=== PATIENT | male | born 1995 | race Two or more races ===

== ENCOUNTER 2021-03-07 23:28 | Emergency (ER) | payer OTHER ==
[~2021-03-07] VITALS: Ht 170.2 cm; Wt 47.2 kg
[2021-03-08] MEDS ORDERED: DICLOFENAC SODI75 MG PO (00:27)
== END 2021-03-08 02:13 | disposition home or self-care (01) ==
LOC: ER 23:28
DX: S92.412A Displaced fracture of proximal phalanx of left great toe, initial encounter for closed fracture (principal); X58.XXXA Exposure to other specified factors, initial encounter; Y93.89 Activity, other specified; Y92.89 Other specified places as the place of occurrence of the external cause

== ENCOUNTER 2021-09-15 14:01 | Outpatient (CLI) | payer OTHER ==
[~2021-09-15 14:01] MED LIST: DICLOFENAC SODI75 MG PO
== END 2021-09-15 14:12 | disposition home or self-care (01) ==
LOC: SONOGRAMA 14:01
PROVIDERS: ATTEND General Practice
DX: N20.0 Calculus of kidney (principal)

== ENCOUNTER 2022-01-09 12:39 | Outpatient (CLI) | payer OTHER | END 2022-01-09 14:38 | disposition home or self-care (01) | LOC: RAD 12:39 | DX: M99.01 Segmental and somatic dysfunction of cervical region (principal); M99.02 Segmental and somatic dysfunction of thoracic region; M99.03 Segmental and somatic dysfunction of lumbar region; M99.04 Segmental and somatic dysfunction of sacral region; M99.05 Segmental and somatic dysfunction of pelvic region ==

== ENCOUNTER 2023-07-02 10:13 | Emergency (ER) | payer OTHER ==
[~2023-07-02] VITALS: Ht 172.7 cm; Wt 51.7 kg
[2023-07-02] MEDS ORDERED: MONTELUKAST SODI4 M1 PO (10:22)
[2023-07-02] MEDS ORDERED: LEXAPRO20 MG PO (10:22)
[2023-07-02] MEDS ORDERED: 0.9 % SODIUM CHLORIDE 500 ML IV SCH (12:00)
[2023-07-02] MEDS ORDERED: ONDANSETRON HCL 2 MG/ML VIAL IV ONE (12:00)
[2023-07-02 13:01] LABS: HEMATOCRIT 42.6 % (36.0-45.00); HEMOGLOBIN 14.1 g/dL (12.0-15.00); MEAN CELL VOLUME 83.6 fL (80.00-100.00); MEAN CORPUSCULAR HEMOGLOBIN 27.7 pg (27.00-32.0); MEAN CORPUSCULAR HGB CONC 33.1 g/dl (32.0-36.0); PLATELET COUNT 250 K/uL (150-450); RED BLOOD COUNT 5.09 M/uL (4.00-6.00); RED CELL DISTRIBUTION WIDTH 12.9 % (11.5-14.5)
[2023-07-02 13:34] LABS: URINE APPEARANCE Clear; URINE BILIRRUBIN Negative (NEGATIVE); URINE BLOOD Negative; URINE COLOR Yellow; URINE GLUCOSE Negative (NEGATIVE); URINE LEUKOCYTE Negative; URINE NITRATE Negative; URINE PROTEIN Negative (NEGATIVE); URINE UROBILINOGEN 0.2 E.U./dl
[2023-07-02 13:38] LABS: URINE BACTERIA 289.6 uL (0.0-1933); URINE EPITHELIAL CELLS 6.1 uL (0.0-38.8); URINE RBC 4.3 uL (0.0-20.8); URINE WBC 11.5 uL (0.0-23.2)
[2023-07-02 14:10] LABS: CALCIUM 10.1 mg/dL (8.5-10.1); CREATININE SERUM 0.63 mg/dL (0.55-1.02); GFR 113.35; POTASSIUM 3.94 mEq/L (3.5-5.1)
== END 2023-07-02 16:42 | disposition home or self-care (01) ==
LOC: ER 10:14
PROVIDERS: Emergency Medicine
DX: K29.70 Gastritis, unspecified, without bleeding (principal); R11.10 Vomiting, unspecified

== ENCOUNTER 2023-12-20 14:23 | Emergency (ER) | payer OTHER ==
[~2023-12-20] VITALS: Ht 172.7 cm; Wt 46.7 kg
[~2023-12-20 14:23] MED LIST changes: +LEXAPRO20 MG PO; +MONTELUKAST SODI4 M1 PO
[2023-12-20] MEDS ORDERED: 0.9 % SODIUM CHLORIDE 1,000 ML IV ONE (16:30)
[2023-12-20] MEDS ORDERED: FAMOtidine 10 MG/ML (4ML VIAL) IV ONE (16:30)
[2023-12-20] MEDS ORDERED: ONDANSETRON HCL 2 MG/ML VIAL IV ONE (16:30)
[2023-12-20 16:59] LABS: HEMATOCRIT 37.6 % (36.0-45.00); HEMOGLOBIN 12.4 g/dL (12.0-15.00); MEAN CELL VOLUME 83.5 fL (80.00-100.00); MEAN CORPUSCULAR HEMOGLOBIN 27.7 pg (27.00-32.0); MEAN CORPUSCULAR HGB CONC 33.1 g/dl (32.0-36.0); PLATELET COUNT 202 K/uL (150-450)
[2023-12-20 17:40] LABS: ALBUMIN 4.5 gm/dL (3.4-5.0); ALKALINE PHOSPHATASE 47 U/L (50-136); ALT/SGPT 24 U/L (12-78); AMYLASE 87 U/L (25-115); ANION GAP 12 (10.0-20.0); AST/SGOT 15 U/L (15-37); BILIRUBIN TOTAL 0.33 mg/dL (0.3-1.2); BLOOD UREA NITROGEN 18 mg/dL (7-18); BUN CREA RATIO 31 (7.0-25.0); CALCIUM 9.7 mg/dL (8.5-10.1); CARBON DIOXIDE 27 mEq/L (21-32); CHLORIDE 106 mmol/L (98-107); CREATININE SERUM 0.59 mg/dL (0.55-1.02); GFR 122.27; GLOBULINA 3.8 G/DL (2.4-3.5); GLUCOSE FASTING 94 mg/dL (65-100); LIPASE 61 U/L (13-75); OSMOLALITY SERUM 283 MOSM/KG (275-295); POTASSIUM 3.93 mEq/L (3.5-5.1); SODIUM 141 mmol/L (136-145); TOTAL PROTEIN 8.3 gm/dL (6.4-8.2)
[2023-12-20 17:41] LABS: HCG QUANTITATIVE < 1 mUI/mL (1-3)
[2023-12-20 17:45] LABS: URINE APPEARANCE Clear; URINE BILIRRUBIN Negative (NEGATIVE); URINE BLOOD Negative; URINE COLOR Yellow; URINE GLUCOSE Negative (NEGATIVE); URINE LEUKOCYTE Negative; URINE NITRATE Negative; URINE PROTEIN Negative (NEGATIVE); URINE UROBILINOGEN 0.2 E.U./dl
[2023-12-20 17:48] LABS: URINE BACTERIA 206.5 uL (0.0-1933); URINE RBC 8.5 uL (0.0-20.8); URINE WBC 5.8 uL (0.0-23.2)
[2023-12-20 18:08] LABS: URINE CAST 0.15 uL (0.0-1.40); URINE KETONE 40 (NEGATIVE)
== END 2023-12-20 19:33 | disposition home or self-care (01) ==
LOC: ER 14:23
PROVIDERS: General Practice
DX: R19.7 Diarrhea, unspecified (principal); Z87.09 Personal history of other diseases of the respiratory system

== ENCOUNTER 2024-02-26 18:28 | Emergency (ER) | payer OTHER ==
[~2024-02-26] VITALS: Ht 170.2 cm; Wt 51.3 kg
[2024-02-26] MEDS ORDERED: KETOROLAC TROMETHAMINE 30 MG VIAL IM ONE (19:00)
== END 2024-02-26 20:26 | disposition home or self-care (01) ==
LOC: ER 18:30
DX: S93.504A Unspecified sprain of right lesser toe(s), initial encounter (principal); X58.XXXA Exposure to other specified factors, initial encounter; Y93.89 Activity, other specified; Y92.89 Other specified places as the place of occurrence of the external cause; Y99.8 Other external cause status

== ENCOUNTER 2024-08-09 18:51 | Emergency (ER) | payer OTHER ==
[~2024-08-09] VITALS: Ht 172.7 cm; Wt 55.8 kg
[2024-08-09] MEDS ORDERED: ESCITALOPRAM OX20 MG PO (18:59)
[2024-08-09] MEDS ORDERED: FAMOTIDINE/PF 20 MG in 0.9 % SODIUM CHLORIDE 8 ML IV PUSH STA (19:25)
[2024-08-09] MEDS ORDERED: 0.9 % SODIUM CHLORIDE 1,000 ML IV SCH (19:30)
[2024-08-09] MEDS ORDERED: ONDANSETRON HCL 2 MG/ML VIAL IV ONE (19:30)
[2024-08-09] MEDS ORDERED: FAMOTIDINE/PF 20 MG/2 ML VIAL ONE (19:32)
[2024-08-09] MEDS ORDERED: ONDANSETRON HCL 2 MG/ML VIAL ONE (19:32)
[2024-08-09 19:55] LABS: HEMATOCRIT 42.2 % (36.0-45.00); HEMOGLOBIN 13.6 g/dL (12.0-15.00); MEAN CELL VOLUME 83.5 fL (80.00-100.00); MEAN CORPUSCULAR HEMOGLOBIN 26.9 pg (27.00-32.0); MEAN CORPUSCULAR HGB CONC 32.2 g/dl (32.0-36.0); PLATELET COUNT 225 K/uL (150-450); RED BLOOD COUNT 5.05 M/uL (4.00-6.00); RED CELL DISTRIBUTION WIDTH 13.2 % (11.5-14.5)
[2024-08-09 20:21] LABS: ALBUMIN 4.9 gm/dL (3.4-5.0); BILIRUBIN TOTAL 0.39 mg/dL (0.3-1.2); CALCIUM 9.5 mg/dL (8.5-10.1); CREATININE SERUM 0.75 mg/dL (0.55-1.02); GFR 92.01; GLOBULINA 4.6 G/DL (2.4-3.5); POTASSIUM 3.43 mEq/L (3.5-5.1); TOTAL PROTEIN 9.5 gm/dL (6.4-8.2)
[2024-08-09] MEDS ORDERED: PEPCID AC20 MG PO (21:02)
[2024-08-09] MEDS ORDERED: ZOFRAN8 MG PO (21:02)
== END 2024-08-09 21:35 | disposition home or self-care (01) ==
LOC: ER 18:52
PROVIDERS: General Practice
DX: R11.2 Nausea with vomiting, unspecified (principal); K29.20 Alcoholic gastritis without bleeding; R11.10 Vomiting, unspecified